=== PATIENT | male | born 1990 | race Caucasian/White ===

== ENCOUNTER 2021-11-12 10:36 | Emergency (ER) | payer OTHER ==
[~2021-11-12] VITALS: Ht 172.7 cm; Wt 77.1 kg
== END 2021-11-12 11:27 | disposition home or self-care (01) ==
LOC: ER 10:36
DX: H61.23 Impacted cerumen, bilateral (principal); M77.9 Enthesopathy, unspecified; R51.9 Headache, unspecified; R44.0 Auditory hallucinations
CPT/HCPCS: 99283; A9270

== ENCOUNTER 2021-11-21 06:49 | Emergency (ER) | payer OTHER ==
[~2021-11-21] VITALS: Ht 172.7 cm; Wt 78.0 kg
[~2021-11-21 06:49] MED LIST: ACIDOPHILUS1 EAC3 PO; Acetaminophen650 M1 PO; CLIN150 PO
[2021-11-21] MEDS ORDERED: SEROQUEL25 MG PO (07:39)
[2021-11-21] MEDS ORDERED: MURINE EAR BOTHEARS (07:39)
== END 2021-11-21 07:53 | disposition home or self-care (01) ==
LOC: ER 06:49
DX: R44.0 Auditory hallucinations (principal); G47.00 Insomnia, unspecified; F15.90 Other stimulant use, unspecified, uncomplicated; H61.22 Impacted cerumen, left ear; R45.1 Restlessness and agitation; Z72.0 Tobacco use
CPT/HCPCS: A9270

== ENCOUNTER 2023-05-20 11:04 | Observation (INO) | payer MEDICAID ==
[~2023-05-20] VITALS: Ht 172.7 cm; Wt 72.6 kg
[~2023-05-20 11:04] MED LIST changes: +MURINE EAR BOTHEARS; +SEROQUEL25 MG PO
[2023-05-20 12:02] LABS: BASOPHILS ABSOLUTE AUTO 0.03 K/mm3 (0.00-0.23); BASOPHILS PERCENT AUTO 0 % (0-2); EOSINOPHILS PERCENT AUTO 1 % (0-6); Hematocrit 47.5 % (37.0-53.0); Hemoglobin 16.4 g/dL (13.5-17.5); IMMATURE GRAN ABSOLUTE AUTO 0.02 K/mm3 (0.00-0.10); IMMATURE GRAN PERCENT AUTO 0 % (0-1); LYMPHOCYTES ABSOLUTE AUTO 1.28 K/mm3 (0.84-5.20); LYMPHOCYTES PERCENT AUTO 18 % (21-46); MONOCYTES ABSOLUTE AUTO 0.56 K/mm3 (0.16-1.47); MONOCYTES PERCENT AUTO 8 % (4-13); Mean Corpuscular HGB 31.2 pg (26.0-34.0); Mean Corpuscular HGB Conc 34.5 g/dL (31.5-36.5); Mean Corpuscular Volume 91 fL (80-100); Mean Platelet Volume 9.8 fL (9.1-12.4); NEUTROPHILS ABSOLUTE AUTO 5.11 K/mm3 (1.96-9.15); NEUTROPHILS PERCENT AUTO 72 % (41-73); Platelet Count 165 K/mm3 (150-400); RDW Coefficient Variation 12.3 % (11.7-14.2); RDW Standard Deviation 40.4 fL (35.1-46.3); Red Blood Cell Count 5.25 M/mm3 (4.30-5.90)
[2023-05-20 13:07] LABS: Ethanol (Alcohol), Blood, Med <3 mg/dL; Thyroid Stimulating Hormone 0.608 uIU/mL (0.360-4.800); Thyroxine (T4) 9.7 ug/dL (4.5-12.1)
[2023-05-20 13:11] LABS: Acetaminophen, Random <2.0 ug/mL (10.0-30.0); Alanine Aminotransfer (ALT/SGP 36 U/L (12-78); Albumin, Blood 4.2 g/dL (3.4-5.0); Albumin/Globulin Ratio 1.2 (0.8-1.8); Alk Phos 73 U/L (50-136); Anion Gap 6 mmol/L (6-16); Aspartate Aminotrans (AST/SGOT 29 U/L (12-37); Bilirubin, Total 0.7 mg/dL (0.1-1.0); Blood Urea Nitrogen 15 mg/dL (8-24); CO2, Blood 30 mmol/L (21-32); Calcium, Blood 8.9 mg/dL (8.5-10.1); Chloride, Blood 105 mmol/L (98-108); Creatinine, Blood 0.94 mg/dL (0.60-1.20); Globulin, Blood 3.5 g/dL (2.2-4.0); Glomerular Filtration Rate 109 (60-); Glucose, Blood 92 mg/dL (70-99); Potassium, Blood 4.1 mmol/L (3.5-5.5); Sodium, Blood 141 mmol/L (136-145); Total Protein, Blood 7.7 g/dL (6.4-8.2)
[2023-05-20 19:45] LABS: Source, Urine Clean Catch
[2023-05-20 19:46] LABS: Appearance, Urine Hazy (Clear); Bilirubin, Urine Neg (Neg); Blood, Urine Neg (Neg); Color, Urine Yellow (P-Yellow); Glucose Qualitative, Urine Neg (Neg); Ketones, Urine Neg (Neg); Leukocyte Esterase, Urine Neg (Neg); Nitrite, Urine Neg (Neg); Protein, Urine Neg (Neg); Specific Gravity, Urine 1.015 (1.003-1.022); Urobilinogen, Urine 2+ (Normal); pH, Urine 6.5 (5.0-8.0)
[2023-05-20 20:15] LABS: Amorphous Mod (0-Heavy); Bacteria Rare /hpf; Mucus Light (0-Heavy); Red Blood Cells, Urine 0-2 /hpf (0-2); Squamous Epithelial Cells Rare /hpf (Few); U Amphetamine Screen DETECTED; U Barbituate Screen Not Detected; U Methamphetamine Screen DETECTED; White Blood Cells, Urine 0-2 /hpf (0-5)
[2023-05-20 20:16] LABS: U Benzodiazapine Screen Not Detected; U Buprenorphine Screen Not Detected; U Cannabinoids Screen Not Detected; U Cocaine Screen Not Detected; U Methadone Screen Not Detected; U Opiates Screen Not Detected; U Oxycodone Screen Not Detected; U Phencyclidine Screen Not Detected; U Propoxyphene Screen Not Detected
[2023-05-20 20:43] LABS: Influenza A, PCR NEGATIVE (NEGATIVE); Influenza B, PCR NEGATIVE (NEGATIVE); Resp Syncytial Virus, PCR NEGATIVE (NEGATIVE); SARS-Cov-2 (COVID-19) PCR, MMC NEGATIVE (NEGATIVE)
[2023-05-21 10:00] VITALS: BP 116/62
== END 2023-05-21 15:30 ==
LOC: ER 11:04 → EOR 11:05
PROVIDERS: ADMIT Emergency Medicine
DX: F29 Unspecified psychosis not due to a substance or known physiological condition (principal); F15.20 Other stimulant dependence, uncomplicated; F31.9 Bipolar disorder, unspecified; R45.851 Suicidal ideations
CPT/HCPCS: 0241U; 80053; 81001; 84436; 84443; 85025; 86592; 93005; 93010; 99285-25; A9270; G0378; G0480

== ENCOUNTER 2023-06-04 23:58 | Observation (INO) | payer MEDICAID ==
[~2023-06-04] VITALS: Ht 172.7 cm; Wt 72.6 kg
[2023-06-05 00:14] VITALS: BP 140/94
[2023-06-05] MEDS ORDERED: OLAN5 PO (10:29)
== END 2023-06-05 14:46 | disposition home or self-care (01) ==
LOC: ER 23:58 → EOR 23:59
PROVIDERS: ADMIT Emergency Medicine
DX: R45.851 Suicidal ideations (principal); F15.20 Other stimulant dependence, uncomplicated
CPT/HCPCS: 86592; 99285; A9270; G0378